=== PATIENT | male | born 1995 | race African-American/Black ===

== ENCOUNTER 2018-03-23 00:58 | Emergency (ER) | payer MEDICAID, SELFPAY | END 2018-03-23 01:30 | disposition home or self-care (01) | LOC: ERS 00:58 | DX: R23.8 Other skin changes (principal); F17.210 Nicotine dependence, cigarettes, uncomplicated | CPT/HCPCS: 99283 ==

== ENCOUNTER 2020-03-12 11:52 | Emergency (ER) | payer SELFPAY | END 2020-03-12 12:56 | disposition home or self-care (01) | LOC: ERS 11:52 | DX: J06.9 Acute upper respiratory infection, unspecified (principal); F17.210 Nicotine dependence, cigarettes, uncomplicated | CPT/HCPCS: 87804; 99283 ==

== ENCOUNTER 2022-08-20 11:54 | Emergency (ER) | payer SELFPAY ==
[2022-08-20] MEDS ORDERED: Ibuprofen 200 MG TAB ONE (13:39)
== END 2022-08-20 14:27 | disposition home or self-care (01) ==
LOC: ERS 11:54
DX: M79.644 Pain in right finger(s) (principal); F17.210 Nicotine dependence, cigarettes, uncomplicated; X50.0XXA Overexertion from strenuous movement or load, initial encounter
CPT/HCPCS: 99283